=== PATIENT | female | born 1975 | race Caucasian/White ===

== ENCOUNTER 2021-03-19 08:37 | Emergency (ER) | payer OTHER ==
[~2021-03-19] VITALS: Ht 175.3 cm; Wt 63.2 kg
[~2021-03-19 08:37] MED LIST: CALC-274 PO; CHOL400C2 PO; IBUP200T44 PO; MULT-18 PO; OMEG500C3 PO
--- NOTE | 2021-03-19 08:54 | PHYS DOC ---
Past History Past Medical History: No Pertinent History Past Surgical History: Other Smoking: Non-smoker Alcohol Use: None Drug Use: None Adult General Chief Complaint Chief Complaint: CHEST PAIN HPI HPI Patient is a 46-year-old male with history of Odin's and Delmar-Danlos presenting for chest pain. Reports onset of generalized chest tightness was 2 days ago which she feels was related to allergies. Nothing known made that bet ter or worse. Reports in last 24 hours she has had a total of x3 episodes of left-sided focal chest pain that was sharp in nature and self resolved in less than 30 seconds. She reports it often radiated to her left neck and left upper extremity causing additional pain which concerned her. She experienced an episode just prior to arrival while driving which concerned her prompting her to come in for evaluation. Denies any significant cardiac history. She is established in outpatient setting with a student life vice president, she has no known history of aneurysms, she had a comprehensive cardiac evaluation in the outpatient setting that involved outpatient event monitor for 2 weeks that was unremarkable. She has never had a cardiac stent or other invasive cardiac jessica gement. During examination, patient not having any chest pain but still endorses feelings of chest tightness and some postnasal drip. She does admit she is fully vaccinated against COVID-19 Review of Systems Review of Systems Fourteen body systems of review of systems have been reviewed. See HPI for pertinent positives and negative responses, other connell all other systems are negative, non-pertinent or non-contributory Allergies Allergies Allergies Coded Allergies Type Severity Reaction Last Updated Verified morphine Adverse Reaction Intermediate Nausea and Vomiting 01/26/14 Yes Physical Exam Physical Exam Constitutional: Well developed, thin, no acute distress, non-toxic appearance. HENT: Normocephalic, atraumatic, bilateral external ears normal, oropharynx moist, no oral exudates, nose normal. Eyes: PERRLA, EOMI, conjunctiva normal, no discharge. Neck: Normal range of motion, no tenderness, supple, no stridor. Cardiovascular: Heart rate regular, sinus rhythm, no murmurs rubs or gallops Lungs & Thorax: Bilateral breath sounds clear to auscultation Abdomen: Bowel sounds normal, soft, no tenderness, no masses, no pulsatile mas ses. Nonsurgical abdomen, no peritoneal signs Skin: Warm, dry, no erythema, no rash. Back: No tenderness, no CVA tenderness. Extremities: No tenderness, no cyanosis, no clubbing, ROM intact, no edema. Neurologic: Alert and oriented X 3, grossly normal motor & sensory function, no focal deficits noted. Psychologic: Affect normal, judgement normal, mood normal. Current Patient Data Vital Signs Vital Signs Date Time Temp Pulse Resp B/P (MAP) Pulse Ox O2 Delivery O2 Flow Rate FiO2 03/19/21 08:43 98.1 98 16 121/66 (84) 98 Room Air Vital Signs Date Time Temp Pulse Resp B/P (MAP) Pulse Ox O2 Delivery O2 Flow Rate FiO2 03/19/21 08:43 98.1 98 16 121/66 (84) 98 Room Air EKG EKG EKG ordered and interpreted by myself at 0853 hrs. as sinus rhythm at 65 bpm, unremarkable intervals, left axis deviation, no obvious ischemic findings, no STEMI Radiology/Procedures Radiology/Procedures EXAM: Chest, single view. HISTORY: Chest pain. COMPARISON: None. FINDINGS: A frontal view of the chest is obtained. There is no infiltrate, pleural effusion or pneumothorax. The heart is normal in size. IMPRESSION: No acute pulmonary finding. Electronically signed by: Adri Paula MD (03/19/2021 9:15 AM) [id number] Heart Score C/O Chest Pain: Yes HEART Score for Chest Pain: HEART Score for Chest Pain Response (Comments) Value History Slighlty/Non-Suspicious 0 ECG Nonspecific Repolarizatio 1 Age >45 - < 65 1 Risk Factors 1 or 2 Risk Factors 1 Total 3 Risk Factors: Risk Factors: DM, Current or recent (<one month) smoker, HTN, HLP, family history of CAD, obesity. Risk Scores: Risk Factors: DM, Current or recent (<one month) smoker, HTN, HLP, family history of CAD, obesity. Course & Med Decision Making Course & Med Decision Making ABCs unremarkable. I disclosed entirety of ER findings and discussed most likely diagnosis of chest pain unspecified. Even though patient is vaccinated cannot fully exclude COVID-19 given current pandemic and joint decision made to test patient for generalized chest tightness. Other diagnoses were discussed with patient such as pulmonary embolism, thoracic and abdominal aortic aneurysms and other emergent diagnoses but all deemed less likely causes of patient's presentation. Especially with patient's predisposition to aneurysms, joint decision to defer advanced imaging due to lack of tearing/ripping sensation, migrating pain, lack of focal neurologic deficits, no heart murmurs, no pulse deficits or hypertension at time of presentation. Plan of care discussed at length with need for close outpatient follow-up to review today's ER visit stressed. Strict return precautions were also discussed at length with good understanding verbalized by patient. Patient voiced understanding and agreement with the plan. Patient knows to come back for repeat evaluation if concerning signs or symptoms present prior to outpatient follow-up. Hemodynamically stable, ambulatory and well-appearing at time of disposition. Dragon Disclaimer Dragon Disclaimer This electronic medical record was generated, in whole or in part, using a voice recognition dictation system. Departure Departure: Impression: Primary Impression: Atypical chest pain Additional Impression: Person under investigation for COVID-19 Disposition: HOME / SELF CARE / HOMELESS Condition: STABLE Referrals: TERENCE AGUILAR (PCP) Additional Instructions: You were seen for chest pain. Your workup did not show any acute abnormalities today, but does not indicate that you do not have underlying cardiovascular disease. You do need to follow up with your primary doctor and potentially your student life vice president for further evaluation and treatment. You should return to the ED if you develop worsening chest pain, shortness of breath, fever, abnormal sweating, leg swelling, or any other new or concerning symptoms. Problem Qualifiers ARSENIO DECKER DO Mar 19, 2021 08:54
[2021-03-19 09:15] LABS: BASO % 1 % (0-3); EOS # 0.1 x10^3/uL (0.0-0.7); EOS % 1 % (0-3); HEMATOCRIT 39.6 % (36.0-47.0); HEMOGLOBIN 13.2 g/dL (12.0-15.5); LYMPH # 1.6 x10^3/uL (1.0-4.8); LYMPH % 29 % (24-48); MEAN CORPUSCULAR HEMOGLOBIN 32 pg (25-35); MEAN CORPUSCULAR HGB CONC 34 g/dL (31-37); MEAN CORPUSCULAR VOLUME 94 fL (79-100); MONO # 0.5 x10^3/uL (0.0-1.1); MONO % 9 % (0-9); NEUT # 3.4 x10^3uL (1.8-7.7); NEUT % 60 % (31-73); PLATELET COUNT 258 x10^3/uL (140-400); RED BLOOD COUNT 4.19 x10^6/uL (3.50-5.40); WHITE BLOOD COUNT 5.6 x10^3/uL (4.0-11.0)
[2021-03-19] MEDS ORDERED: ASPIRIN CHEWABLE 81 MG TABLET. PO ONE (09:15)
--- NOTE | 2021-03-19 09:17 | RAD ---
EXAM: Chest, single view. HISTORY: Chest pain. COMPARISON: None. FINDINGS: A frontal view of the chest is obtained. There is no infiltrate, pleural effusion or pneumo thorax. The heart is normal in size. IMPRESSION: No acute pulmonary finding. Electronically signed by: Adri Paula MD (03/19/2021 9:15 AM) [id number]
[2021-03-19 09:24] LABS: CALCIUM 9.1 mg/dL (8.5-10.1); CREATININE 0.7 mg/dL (0.6-1.0); GFR 89.3
[2021-03-19 09:29] LABS: ALBUMIN/GLOBULIN RATIO 1.3 (1.0-1.7); TOTAL BILIRUBIN 0.6 mg/dL (0.2-1.0); TOTAL PROTEIN 7.2 g/dL (6.4-8.2)
--- NOTE | 2021-03-19 09:31 | EKG ---
[address] [address] Test Date: 2021-03-19 Test Time: 08:48:08 Pat Name: WILLOW BRAY Department: Room: Gender: F [employer] Inspector: JOSH : 1975 Requested By: ARSENIO DECKER Order Number: [id number] Reading MD: Measurements Intervals [place] Rate: 65 P: SD: QRS: -20 QRSD: 74 T: 66 QT: 414 QTc: 436 Interpretive Statements IRREGULAR RHYTHM, NO P-WAVE FOUND LEFTWARD AXIS LOW LIMB LEAD VOLTAGE NO SPECIFIC ECG ABNORMALITIES RI6.02 No previous ECG available for comparison
[2021-03-19 10:19] VITALS: BP 115/70
--- NOTE | 2021-03-20 11:01 | NUR ---
IP: Informed pt of negative covid results. Pt verbalized understanding.
== END 2021-03-19 10:43 | disposition home or self-care (01) ==
LOC: ER 08:37
DX: R07.89 Other chest pain (principal); Z20.822 Contact with and (suspected) exposure to COVID-19; Z88.5 Allergy status to narcotic agent
CPT/HCPCS: 36415; 71045; 80053; 84484; 85025; 93005; 99285; C9803; U0003

== ENCOUNTER 2021-06-18 18:30 | Emergency (ER) | payer OTHER | END 2021-06-18 20:00 | disposition left against medical advice (07) | LOC: ER 18:30 | DX: H57.89 Other specified disorders of eye and adnexa (principal); Z53.21 Procedure and treatment not carried out due to patient leaving prior to being seen by health care provider ==